=== PATIENT | female | born 1960 | race Hispanic/Latino ===

== ENCOUNTER → 2020-09-10 | Outpatient (CLI) | payer OTHER ==
[~2020-09-10] MED LIST: COVID-19 VACC, MRNA(MODERNA)/PF 100 MCG/0.5 ML VIAL IM ONE
== END ==
LOC: VACCPMC 17:00
DX: Z23 Encounter for immunization (principal); Z20.822 Contact with and (suspected) exposure to COVID-19

== ENCOUNTER → 2020-10-08 | Outpatient (CLI) | payer OTHER | END | DRG 951 | LOC: VACCPMC 09:36 | DX: Z23 Encounter for immunization (principal); Z20.822 Contact with and (suspected) exposure to COVID-19 | CPT/HCPCS: 0012A; 91301 ==

== ENCOUNTER 2024-04-08 09:53 | Inpatient (IN) | payer OTHER ==
[~2024-04-08] VITALS: Ht 152.4 cm; Wt 57.2 kg
[2024-04-08] VITALS (8 sets, daily range): BP systolic 111–133; BP diastolic 65–68; PULSE 76–80; RESP 16–19; TEMP 97.2–98.8; O2SAT 96
[2024-04-08] MEDS: ONDANSETRON HCL INJ 2MG/ML 2ML 2 MG/ML VIAL IV STA (10:37)
[2024-04-08] MEDS: SODIUM CHLORIDE 0.9% 1000ML 1,000 ML IV STA ×2 (10:41→12:06)
[2024-04-08] MEDS: Morphine 2mg Syringe 2 MG/ML SYR IV ONE (10:41)
[2024-04-08] MEDS: ACETAMINOPHEN 1000 MG/100 ML IV STA (10:42)
[2024-04-08 10:44] LABS: BASOPHILS % 0.2 % (0.0-1.0); EOSINOPHILS % 0.1 % (0.0-6.0); HEMATOCRIT 37.8 % (34.2-44.1); HEMOGLOBIN 12.3 g/dL (12.0-16.0); LYMPHOCYTES # (AUTO) 0.4 (1.0-3.2); MEAN CORPUSCULAR HEMOGLOBIN 27.4 pg (28-32); MEAN CORPUSCULAR HGB CONC 32.5 g/dL (31-35); MEAN CORPUSCULAR VOLUME 84.2 fL (81-99); MONOCYTES # (AUTO) 0.8 (0.2-0.8); MONOCYTES % 5.5 % (4.4-11.3); NEUTROPHILS # (AUTO) 13.5 (2.1-6.9); NEUTROPHILS % 90.7 % (38.7-80.0); PLATELET COUNT 337 x10e3/uL (140-360); RED BLOOD COUNT 4.49 x10e6/uL (3.6-5.1); RED CELL DISTRIBUTION WIDTH 13.5 % (11.7-14.4); WHITE BLOOD COUNT 14.88 x10e3/uL (4.8-10.8)
[2024-04-08 10:52] LABS: BILIRUBIN,URINE NEGATIVE (NEGATIVE); CLARITY,URINE SL CLOUDY (CLEAR); COLOR,URINE YELLOW (YELLOW); GLUCOSE, URINE NEGATIVE (NEGATIVE); KETONES,URINE NEGATIVE (NEGATIVE); LEUKOCYTE ESTERASE ,URINE NEGATIVE (NEGATIVE); NITRITE,URINE NEGATIVE (NEGATIVE); PH,URINE 7 (5 - 7); PROTEIN,URINE DIPSTICK 1+ (NEGATIVE); URINE UROBILINOGEN 1 mg/dL (0.2 - 1)
[2024-04-08 10:54] LABS: INR 1.11; PROTHROMBIN TIME 15.1 seconds (11.9-14.5)
[2024-04-08 10:55] LABS: BACTERIA,URINE MODERATE /HPF; EPITHELIAL CELLS,URINE FEW /LPF; PARTIAL THROMBOPLASTIN TIME 33.7 seconds (23.8-35.5); RBC,URINE >50 /HPF (0-5)
[2024-04-08 11:01] LABS: ALANINE AMINOTRANSFERASE 32 IU/L (0-55); ALBUMIN 2.8 g/dL (3.5-5.0); ALBUMIN/GLOBULIN RATIO 0.7 (0.8-2.0); ALKALINE PHOSPHATASE 124 IU/L (40-150); ANION GAP 15.7 mmol/L (8-16); BILIRUBIN,TOTAL 0.6 mg/dL (0.2-1.2); BLOOD UREA NITROGEN 10 mg/dL (7-26); BUN/CREATININE RATIO 13 (6-25); CALCIUM 9.6 mg/dL (8.4-10.2); CARBON DIOXIDE 31 mmol/L (22-29); CHLORIDE 91 mmol/L (98-107); EST GLOMERULAR FILTRATION RATE 83 ML/MIN (>=60); GLUCOSE 145 mg/dL (74-118); MAGNESIUM 1.9 MG/DL (1.3-2.1); SODIUM 135 mmol/L (136-145)
[2024-04-08 11:03] LABS: POTASSIUM 2.7 mmol/L (3.5-5.1)
[2024-04-08] MEDS ORDERED: IOPAMIDOL 370 MG/ML 100 ML INFUS..BTL INJ ONE (11:23)
[2024-04-08 11:26] LABS: TROPONIN I < 0.001 ng/mL (0-0.300)
[2024-04-08] MEDS: POTASSIUM CHLORIDE 20 MEQ TAB CR PO ONE (12:06)
[2024-04-08] MEDS ORDERED: Morphine 4mg INJECTION 4 MG/ML INJ IV PRN (13:30)
[2024-04-08] MEDS ORDERED: ONDANSETRON HCL INJ 2MG/ML 2ML 2 MG/ML VIAL IV PRN (13:30)
[2024-04-08] MEDS: Vancomycin IV 1 GM in SODIUM CHLORIDE 0.9% 250ML 250 ML IV SCH (13:47)
[2024-04-08] MEDS: SODIUM CHLORIDE 0.9% 1000ML 1,000 ML IV SCH (16:11)
[2024-04-08] MEDS ORDERED: CLONIDINE HCL 0.1 MG TAB PO PRN (19:00)
[2024-04-08] MEDS: POTASSIUM CHLORIDE 10MEQ EA PO ONE (19:41)
[2024-04-09] VITALS: BP 133/58; PULSE 100; RESP 18; TEMP 99.8; O2SAT 100
[2024-04-09] MEDS: ACETAMINOPHEN 325 MG TAB PO PRN (00:30)
[2024-04-09 04:00] VITALS: BP 108/62; PULSE 82; RESP 18; TEMP 98; O2SAT 98
[2024-04-09 06:08] LABS: BASOPHILS % 0.3 % (0.0-1.0); EOSINOPHILS % 0.3 % (0.0-6.0); HEMATOCRIT 28.3 % (34.2-44.1); HEMOGLOBIN 9.1 g/dL (12.0-16.0); LYMPHOCYTES # (AUTO) 1.1 (1.0-3.2); LYMPHOCYTES % 9.1 % (18.0-39.1); MEAN CORPUSCULAR HEMOGLOBIN 27.2 pg (28-32); MEAN CORPUSCULAR HGB CONC 32.2 g/dL (31-35); MEAN CORPUSCULAR VOLUME 84.7 fL (81-99); MONOCYTES % 8.1 % (4.4-11.3); NEUTROPHILS # (AUTO) 9.7 (2.1-6.9); NEUTROPHILS % 81.7 % (38.7-80.0); PLATELET COUNT 276 x10e3/uL (140-360); RED BLOOD COUNT 3.34 x10e6/uL (3.6-5.1); RED CELL DISTRIBUTION WIDTH 13.9 % (11.7-14.4); WHITE BLOOD COUNT 11.94 x10e3/uL (4.8-10.8)
[2024-04-09 06:45] LABS: ALBUMIN/GLOBULIN RATIO 0.7 (0.8-2.0); ANION GAP 12.3 mmol/L (8-16); BILIRUBIN,TOTAL 0.5 mg/dL (0.2-1.2); CALCIUM 7.8 mg/dL (8.4-10.2); CREATININE, SERUM 0.72 mg/dL (0.57-1.11)
[2024-04-09 06:47] LABS: POTASSIUM 3.3 mmol/L (3.5-5.1)
[2024-04-09 08:00] VITALS: BP 107/63; PULSE 80; RESP 18; TEMP 97.7; O2SAT 97
[2024-04-09 08:26] VITALS: BP 107/63; PULSE 80; RESP 18; TEMP 97.7; O2SAT 97
[2024-04-09] MEDS: POTASSIUM CHLORIDE 10MEQ EA PO ONE (11:48)
[2024-04-09] MEDS ORDERED: CLINDAMYCIN HC300 MG PO (11:56)
[2024-04-09 12:28] VITALS: BP 124/67; PULSE 79; RESP 19; TEMP 98.2; O2SAT 99
== END 2024-04-09 12:50 | disposition home or self-care (01) | DRG 872 ==
LOC: ER 09:58 → ERHOLD 13:22 → MED/SURG2 15:10
PROVIDERS: ADMIT Internal Medicine; ATTEND Internal Medicine
PROC: 3E0333Z Introduction of Anti-inflammatory into Peripheral Vein, Percutaneous Approach (ICD-10-PCS; principal; 2024-04-08)
DX: A41.9 Sepsis, unspecified organism (principal); L03.314 Cellulitis of groin; R65.20 Severe sepsis without septic shock; E87.6 Hypokalemia; I10 Essential (primary) hypertension; Z11.52 Encounter for screening for COVID-19
CPT/HCPCS: 36415; 71045; 74177; 80053; 81001; 83605; 83735; 84484; 85025; 85610; 85730; 87040; 87086; 99252; 99284; J2270; J2405; J2543; J7030; J7050; Q9967; U0002